=== PATIENT | female | born 1980 ===

== ENCOUNTER 2021-05-25 09:29 | Emergency (ER) | payer BC, MEDICAID ==
--- NOTE | 2021-05-25 10:03 | EDM.PDOC ---
ED HPI GENERAL MEDICAL PROBLEM - General Chief Complaint: Cardiovascular Problem Stated Complaint: CANT GET BLOOD PRESSURE TO GO DOWN [id number] Time Seen by Provider: 05/25/21 09:50 Source of Information: Reports: Patient, RN History Limitations: Reports: No Limitations - History of Present Illness INITIAL COMMENTS - FREE TEXT/NARRATIVE: Lida is a 40 y/o female who presents to the ED via personal vehicle with complaints of high blood pressure, anxiety, and fatigue. The patient states she was noted to have high blood pressure at an OBGYN appointment last week; she was instructed to monitor her blood pressure for a week and if they do not reduce to follow up with her PCP. She has been checking her BP BID since that time with elevated readings; 150s systolic. She notes she attempted to get an appointment with her PCP today but was unable so she presented here. She denies recent illness, fever, shaking chills, cough, sore throat, chest pain, palpitations, shortness of breath, or dyspepsia. She states she is not currently on any antihypertensives or daily anxiolytic medications. The patient attest to smoking 1/4 pack of cigarettes per day and drinking 3-4 12oz malt beverages every day; she denies recreational drug use. - Related Data Allergies Allergy/AdvReac Type Severity Reaction Status Date / Time cyclobenzaprine Allergy Diarrhea Verified 05/25/21 10:02 erythromycin base Allergy Swelling Verified 05/25/21 10:02 nickel Allergy Itching Verified 05/25/21 10:02 tetanus and diphtheria Allergy Swelling Verified 05/25/21 10:02 toxoids Home Meds: Home Meds Fluticasone Propionate [Flonase] 16 gm NS DAILY 05/25/21 [History] ED ROS GENERAL - Review of Systems Review Of Systems: Comprehensive ROS is negative, except as noted in HPI. ED EXAM, GENERAL - Physical Exam Exam: See Below Exam Limited By: No Limitations General Appearance: Alert, No Apparent Distress, Obese Eye Exam: Bilateral Eye: EOMI, Normal Inspection, PERRL (3mm) Ears: Normal External Exam, Normal Canal, Hearing Grossly Normal, Normal TMs Nose: Normal Inspection, Normal Mucosa, No Blood Throat/Mouth: Normal Inspection, Normal Oropharynx, Normal Voice, No Airway Compromise Head: Atraumatic, Normocephalic Neck: Normal Inspection, Supple, Non-Tender, Full Range of Motion. No: Lymphadenopathy (L), Lymphadenopathy (R) Respiratory/Chest: No Respiratory Distress, Lungs Clear, Normal Breath Sounds, No Accessory Muscle Use, Chest Non-Tender Cardiovascular: Normal Peripheral Pulses, Regular Rate, Rhythm, No Edema, No Gallop, No JVD, No Murmur, No Rub Peripheral Pulses: 2+: Radial (L), Radial (R) GI/Abdominal: Normal Bowel Sounds, Soft, Non-Tender, No Distention, No Abnormal Bruit, No Mass, Pelvis Stable (Female) Exam: Deferred Rectal (Female) Exam: Deferred Back Exam: Normal Inspection, Full Range of Motion Extremities: Normal Inspection, Normal Range of Motion, Non-Tender, No Pedal Edema, Normal Capillary Refill Neurological: Alert, Oriented, CN II-XII Intact, Normal Cognition, Normal Gait, No Motor/Sensory Deficits Psychiatric: Normal Affect, Normal Mood Skin Exam: Warm, Dry, Intact, Normal Color, No Rash. No: Cyanosis, Jaundice, Mottled, Pallor Lymphatic: No Adenopathy Course - Vital Signs Last Recorded V/S: Last Vital Signs Temp 97.6 F 05/25/21 09:51 Pulse 96 05/25/21 09:51 Resp 20 05/25/21 09:51 BP 152/102 H 05/25/21 09:51 Pulse Ox 99 05/25/21 09:51 - Orders/Labs/Meds Labs: Laboratory Tests 05/25/21 05/25/21 Range/Units 10:09 10:09 WBC 5.7 (5.0-10.0) 10^3/uL RBC 4.99 (4.2-5.4) 10^6/uL Hgb 16.9 H (12.0-16.0) g/dL Hct 50.4 H (37.0-47.0) % MCV 101.0 H (80-100) fL MCH 33.9 (27.0-34.0) pg MCHC 33.5 (33.0-35.0) g/dL Plt Count 241 (150-450) 10^3/uL Neut % (Auto) 66.1 (42.2-75.2) % Lymph % (Auto) 24.4 (20.5-50.1) % [place] % (Auto) 6.0 (2-8) % Eos % (Auto) 3.0 (1.0-3.0) % Baso % (Auto) 0.5 (0.0-1.0) % Sodium 138 (136-145) mmol/L Potassium 4.0 (3.5-5.1) mmol/L Chloride 102 (98-107) mmol/L Carbon Dioxide 25 (21-32) mmol/L Anion Gap 15.0 H (7-13) mEq/L BUN 6 L (7-18) mg/dL Creatinine 0.65 (0.55-1.02) mg/dL Est Cr Clr Drug Dosing 107.73 mL/min Estimated GFR (MDRD) > 60 BUN/Creatinine Ratio 9.2 (No establ ref range) Glucose 91 (70-99) mg/dL Calcium 8.8 (8.5-10.1) mg/dL Total Bilirubin 0.4 (0.2-1.0) mg/dL AST 46 H (15-37) U/L ALT 55 (14-59) U/L Alkaline Phosphatase 106 (46-116) U/L B-Natriuretic Peptide 12 (0-100) pg/ml Total Protein 7.8 (6.4-8.2) g/dL Albumin 3.6 (3.4-5.0) g/dL Globulin 4.2 Albumin/Globulin Ratio 0.9 - Re-Assessments/Exams Free Text/Narrative Re-Assessment/Exam: 05/25/21 Findings of examination and lab work reviewed with patient. Reviewed cessation in alcohol and tobacco use. Patient states she called the clinic at [facility] and now has an appointment for noon to establish care. Will discharge patient from the ED to make her appointment. Patient verbalized understanding and agreement with the plan of care. Departure - Departure Time of Disposition: 11:10 Disposition: Home, Self-Care 01 Condition: Good Clinical Impression: Alcohol use, Dehydration Hypertension Qualifiers: Hypertension type: unspecified Qualified Code(s): I10 - Essential (primary) hypertension Instructions: Hypertension, Adult, Dehydration, Adult Forms: ED Department Discharge Additional Instructions: 1.) Keep your appointment today with your primary care provider to initiate high blood pressure medications. 2.) Drink plenty of water to stay hydrated. 3.) Do not drink alcohol, as this causes dehydration. 4.) Decrease cigarette use. 5.) Return to the emergency department with any chest pain, shortness of breath, chest palpitations, or additional symptoms.
[2021-05-25 10:56] LABS: CHLORIDE,CL 102 mmol/L (98-107); SODIUM,NA 138 mmol/L (136-145)
== END 2021-05-25 11:33 | disposition home or self-care (01) ==
LOC: DL.ED 09:29
DX: I10 Essential (primary) hypertension (principal); E86.0 Dehydration; F10.10 Alcohol abuse, uncomplicated; Z88.7 Allergy status to serum and vaccine; Z91.09 Other allergy status, other than to drugs and biological substances; Z88.1 Allergy status to other antibiotic agents; Z88.8 Allergy status to other drugs, medicaments and biological substances
CPT/HCPCS: 36415; 80053; 83880; 85025; 99283